=== PATIENT | female | born 1935 | race Caucasian/White ===

== ENCOUNTER 2016-11-14 11:21 | Inpatient (IN) | payer MEDICARE, BC ==
[~2016-11-14 11:21] MED LIST: ASPIRIN325 MG; ATROPINE 0.01%-10 ML RIGHT EYE; CALTRATE 600 +1 EAC2 PO; CALTRATE-600/VI1 TA1 PO; ENTOCORT EC3 M1 PO; ENTOCORT EC3 MG PO; KEFLEX500 M4 PO; LIPITOR20 M1 PO; LIPITOR20 MG; LODINE XL400 MG PO; LOTEMAX5 M1 EACH EYE; MOBIC15 M2 PO; MURO-12815 ML OP; MURO-1283.5 GM OP; OCUFLOX5 ML RIGHT EYE; OCUVITE WITH L1 EACH PO; OMEPRAZOLE40 M2 PO; OMNIPRED10 M1; POTASSIUM CHLO10 ME1 PO; PRED FORTE5 ML; PREFEST PO; SKELAXIN800 M3 PO; SYNTHROID100 MCG PO; SYNTHROID112 MC1 PO; SYNTHROID88 MCG PO; TYLENOL325 M2 PO; TYLENOL500 MG PO; ULTRAM50 M1 PO; [UNRECOGNIZED DRUG - OTHER]; [UNRECOGNIZED DRUG - OTHER] PO
[2016-11-14] MEDS ORDERED: MURO-1283.5 G1 OP (11:57)
[2016-11-14 12:14] LABS: INR 0.9 INR (0.9-1.1); PROTHROMBIN TIME 10.8 SECONDS (9.0-13.6)
[2016-11-15 04:30] LABS: BASO % 0.2 % (0-2); EOS % 0.1 % (0-7); HCT-HEMATOCRIT 31.7 % (34.0-49.0); HGB-HEMOGLOBIN 10.4 gm/dl (12.0-15.5); IMMATURE GRANULOCYTES ABSOLUTE 0.03 tho/cmm (0-0.03); IMMATURE GRANULOCYTES PERCENT 0.3 % (0-0.3); LYMPH % 10.9 % (20-45); LYMPH ABSOLUTE COUNT 1.3 tho/cmm (0.8-4.5); MCHC MEAN CORPUSCULAR HGB CONC 32.8 % (32.0-36.0); MCV (MEAN CELL VOLUME) 94.3 fl (82.0-96.0); MEAN PLATELET VOLUME 9.9 cmc (9.4-12.4); MONO % 7.2 % (0-12); MONOCYTE ABSOLUTE COUNT 0.8 tho/cmm (0.0-1.2); NEUTROPHIL ABSOLUTE COUNT 9.5 tho/cmm (1.6-8.0); NEUTROPHIL-AUTOMATED 9.5 tho/cmm (1.6-8.0); NEUTROPHILS % 81.3 % (40-80); PLATELET COUNT 213 tho/cmm (150-450); RED BLOOD COUNT 3.36 mil/cmm (4.00-5.20); RED CELL DISTRIBUTION WIDTH 13.3 % (12.4-16.4); WHITE BLOOD COUNT 11.7 tho/cmm (4.0-10.0)
[2016-11-15 04:43] LABS: ANION GAP 12 mmol/L (0-20); BLOOD UREA NITROGEN 6 mg/dl (6-24); CALCIUM 7.8 mg/dl (8.5-10.5); CARBON DIOXIDE-VENOUS 26 mmol/L (22-32); CHLORIDE 101 mmol/l (96-110); CREATININE 0.43 mg/dl (0.50-1.10); GLUCOSE 122 mg/dL (70-110); POTASSIUM 3.5 mmol/L (3.7-5.1); SODIUM 135 mmol/L (135-145); eGFR VALUE FOR BLACK >90 mL/Min
[2016-11-16] MEDS ORDERED: ASPIRIN81 M1 PO (13:39)
[2016-11-16] MEDS ORDERED: SENNA-S TABLET1 EAC3 PO (13:43)
[2016-11-16] MEDS ORDERED: ROXICODONE5 M2 PO (13:44)
== END 2016-11-16 15:33 | DRG 468 ==
LOC: SHSB 11:21 → ORE 13:29 → PACU 16:02 → 5EA 17:10
PROVIDERS: Internal Medicine; ADMIT Orthopaedic Surgery Foot and Ankle Surgery
PROC: 0SRC0J9 Replacement of Right Knee Joint with Synthetic Substitute, Cemented, Open Approach (ICD-10-PCS; principal; 2016-11-14)
PROC: 0SPC0JZ Removal of Synthetic Substitute from Right Knee Joint, Open Approach (ICD-10-PCS; 2016-11-14)
DX: T84.023A Instability of internal left knee prosthesis, initial encounter (principal); I34.0 Nonrheumatic mitral (valve) insufficiency; E03.9 Hypothyroidism, unspecified; E78.5 Hyperlipidemia, unspecified; K21.9 Gastro-esophageal reflux disease without esophagitis; M50.30 Other cervical disc degeneration, unspecified cervical region; M19.90 Unspecified osteoarthritis, unspecified site; F41.1 Generalized anxiety disorder; H40.9 Unspecified glaucoma; E78.00 Pure hypercholesterolemia, unspecified; M85.80 Other specified disorders of bone density and structure, unspecified site; M47.9 Spondylosis, unspecified; Z94.7 Corneal transplant status; G25.0 Essential tremor; K44.9 Diaphragmatic hernia without obstruction or gangrene; Z79.52 Long term (current) use of systemic steroids; K52.831 Collagenous colitis
CPT/HCPCS: C1713; C1776; J0171; J0690; J1720; J1885; J2270; J2405; J2795; J3370